=== PATIENT | female | born 1990 | race American Indian/Alaskan Native ===

== ENCOUNTER 2017-04-16 00:03 | Emergency (ER) | payer OTHER ==
[2017-04-16 00:47] VITALS: BP 113/92
[2017-04-16 02:23] LABS: Hematocrit 39.9 % (30.3-42.9); Hemoglobin 13.5 gm/dl (10.1-14.3); Mean Corpuscular HGB Conc 34 % (30-34); Mean Corpuscular Hemoglobin 29 pg (28-32); Mean Corpuscular Volume 85 fl (79-97); Platelet Count 239 K/mm3 (140-440); Red Cell Distribution Width 13.6 % (13.2-15.2)
--- NOTE | 2017-04-16 02:29 | XRay Report ---
FINAL REPORT EXAM: XR CHEST ROUTINE 2V HISTORY: Shortness of breath TECHNIQUE: PA and lateral views of the chest were submitted. FINDINGS: Heart size and mediastinum appear normal. The lungs are clear. The bones and soft tissues do not show any acute changes. IMPRESSION: No active chest disease.
[2017-04-16 02:45] LABS: Alanine Aminotransferase 8 units/L (7-56); Albumin 3.8 g/dL (3.9-5); BUN/Creatinine Ratio 22; Blood Urea Nitrogen 11 mg/dL (7-17); Calcium 9.1 mg/dL (8.4-10.2); Hemolysis Index 25
[2017-04-16 03:32] LABS: Basophils % (Manual) 0 % (0.0-1.8); Total Cells Counted 100
[2017-04-16 03:33] LABS: Platelet Estimate Consistent w Auto
== END 2017-04-16 11:45 | disposition left against medical advice (07) ==
LOC: ED 00:03
DX: R10.9 Unspecified abdominal pain (principal); R06.02 Shortness of breath; Z53.21 Procedure and treatment not carried out due to patient leaving prior to being seen by health care provider
CPT/HCPCS: 36415; 71046; 80048; 80053; 84484; 85007; 85025; 93005; 93010

== ENCOUNTER 2017-05-08 10:21 | Emergency (ER) | payer OTHER ==
[2017-05-08 10:56] VITALS: BP 115/59
--- NOTE | 2017-05-08 13:06 | Emergency Department Report ---
HPI - General Chief Complaint: Abdominal Pain Time Seen by Provider: 05/08/17 12:57 - HPI HPI: Healthy 27-year-old female presents with nasal congestion, earache and sore throat for several days. She also had a month of epigastric abdominal pain. She noted the abdominal pain after binge drinking alcohol for New Year's Roxane. Now she has intermittent epigastric pain. No pain currently. ED Past Medical Hx - Past Medical History Previous Medical History?: Yes Hx Asthma: Yes Additional medical history: SEASONAL ALLERGIES - Surgical History Past Surgical History?: Yes Additional Surgical History: rt shoulder laproscopic - Social History Smoking Status: Never Smoker Substance Use Type: Alcohol - Medications Home Medications: Home Medications Medication Instructions Recorded Confirmed Last Taken Type Amoxicillin/K Clav Tab [Augmentin 1 tab PO Q12HR #20 tab 11/04/14 Unknown Rx 875MG TAB] Fluticasone [Flonase] 2 spray NS QDAY #1 bottle 11/04/14 Unknown Rx Loratadine [Claritin] 10 mg PO DAILY #30 tablet 11/04/14 Unknown Rx predniSONE [Deltasone] 40 mg PO QDAY #10 tab 11/04/14 Unknown Rx Ibuprofen [Motrin 600 MG tab] 600 mg PO Q8H PRN #30 tablet 03/02/15 Unknown Rx Promethazine Dm [Phenergan Dm 5 ml PO Q6H PRN 7 Days 03/02/15 Unknown Rx 6.25/15 mg 5 ml] ED Review of Systems ROS: Stated complaint: CP/SOB/SORE THROAT/EAR PAIN Other details as noted in HPI Comment: All other systems reviewed and negative Constitutional: malaise. denies: fever ENT: ear pain, throat pain Respiratory: cough Cardiovascular: chest pain Physical Exam - Physical Exam Vital Signs: Vital Signs 05/08/17 10:52 Temperature 98.3 F Pulse Rate 76 Respiratory 18 Rate Blood Pressure 115/59 O2 Sat by Pulse 100 Oximetry Physical Exam: General: Well-appearing, no acute distress HEENT: Normocephalic atraumatic pupils equal round and reactive to light anicteric sclera Nose: no rhinorrhea Oropharynx: Clear mucous membranes no lesions Neck: supple, no meningismus Ears: Bilaterally normal tympanic membranes Chest: Clear to auscultation bilaterally no rales rhonchi no wheezes Cardiac: Regular rate and rhythm no murmurs no rubs no gallops Abdomen: Soft nontender nondistended positive bowel sounds no guarding Extremities: No cyanosis no clubbing no edema Neuro: Moves all extremities 4, no gross deficits Psychiatric: Alert and oriented 4 normal affect normal judgment normal insight ED Course Vital Signs 05/08/17 10:52 Temperature 98.3 F Pulse Rate 76 Respiratory 18 Rate Blood Pressure 115/59 O2 Sat by Pulse 100 Oximetry ED Medical Decision Making - EKG Data 05/08/17 13:04 EKG obtained at 1103 Rate 65 beats a minute normal sinus rhythm normal axis normal intervals no ST-T signs of ischemia - Medical Decision Making Tia has clinical diagnosis of influenza. EKG was obtained for chest pain with cough. No indication of PE. No indication of pneumonia. One month of epigastric intermittent abdominal pain differential diagnosis includes gastritis, dyspepsia, IBS, peptic ulcer disease. No evidence of peritonitis. No evidence of cholecystitis or appendicitis. Critical care attestation.: If time is entered above; I have spent that time in minutes in the direct care of this critically ill patient, excluding procedure time. ED Disposition Clinical Impression: Influenza, Abdominal pain Disposition: DC-01 TO HOME OR SELFCARE Is pt being admited?: No Does the pt Need Aspirin: No Condition: Good Instructions: Abdominal Pain (ED), Influenza (ED) Referrals: PRIMARY CARE,MD [Primary Care Provider] - as needed Forms: Work/School Release Form(ED)
== END 2017-05-08 13:12 | disposition home or self-care (01) ==
LOC: ED 10:21
DX: J11.1 Influenza due to unidentified influenza virus with other respiratory manifestations (principal); R10.9 Unspecified abdominal pain
CPT/HCPCS: 93005; 93010; 99282

== ENCOUNTER 2017-06-17 12:41 | Emergency (ER) | payer OTHER ==
[2017-06-17 13:53] VITALS: BP 138/92
[2017-06-17 14:23] LABS: Basophils % (Auto) 0.4 % (0.0-1.8); Eosinophils # (Auto) 0.1 K/mm3 (0.0-0.4); Eosinophils % (Auto) 1.1 % (0.0-4.3); Hematocrit 41.1 % (30.3-42.9); Hemoglobin 13.5 gm/dl (10.1-14.3); Lymphocytes # (Auto) 3.2 K/mm3 (1.2-5.4); Lymphocytes % (Auto) 43.1 % (13.4-35.0); Mean Corpuscular HGB Conc 33 % (30-34); Mean Corpuscular Hemoglobin 28 pg (28-32); Mean Corpuscular Volume 85 fl (79-97); Monocytes # (Auto) 0.5 K/mm3 (0.0-0.8); Monocytes % (Auto) 6.5 % (0.0-7.3); Platelet Count 256 K/mm3 (140-440); Red Blood Count 4.83 M/mm3 (3.65-5.03); Red Cell Distribution Width 14.3 % (13.2-15.2)
[2017-06-17 14:40] LABS: Alanine Aminotransferase 13 units/L (7-56); Albumin 3.9 g/dL (3.9-5); BUN/Creatinine Ratio 18; Blood Urea Nitrogen 11 mg/dL (7-17); Calcium 8.6 mg/dL (8.4-10.2); Hemolysis Index 6
[2017-06-17 16:27] LABS: Bilirubin,Urine NEG (Negative); Blood,Urine NEG (Negative); Color,Urine Yellow (Yellow); Mucus,Urine FEW /HPF; Protein,Urine <15 mg/dL mg/dL (Negative); Urobilinogen,Urine < 2.0 mg/dL (<2.0)
== END 2017-06-18 00:12 | disposition left against medical advice (07) ==
LOC: ED 12:41
DX: R10.9 Unspecified abdominal pain (principal); Z53.21 Procedure and treatment not carried out due to patient leaving prior to being seen by health care provider
CPT/HCPCS: 36415; 80053; 81001; 85025

== ENCOUNTER 2017-10-25 00:53 | Emergency (ER) | payer OTHER ==
[2017-10-25] MEDS ORDERED: NACL 0.9% 1000 ML 1,000 ML IV ONE (01:55)
[2017-10-25 02:41] LABS: Basophils # (Auto) 0.1 K/mm3 (0.0-0.1); Basophils % (Auto) 0.7 % (0.0-1.8); Eosinophils # (Auto) 0.1 K/mm3 (0.0-0.4); Eosinophils % (Auto) 0.9 % (0.0-4.3); Hemoglobin 13.3 gm/dl (10.1-14.3); Lymphocytes # (Auto) 3.3 K/mm3 (1.2-5.4); Lymphocytes % (Auto) 43.3 % (13.4-35.0); Mean Corpuscular HGB Conc 34 % (30-34); Mean Corpuscular Hemoglobin 29 pg (28-32); Mean Corpuscular Volume 86 fl (79-97); Monocytes # (Auto) 0.4 K/mm3 (0.0-0.8); Monocytes % (Auto) 5.4 % (0.0-7.3); Platelet Count 256 K/mm3 (140-440); Red Blood Count 4.53 M/mm3 (3.65-5.03); Red Cell Distribution Width 14.1 % (13.2-15.2)
[2017-10-25 02:51] LABS: Bilirubin,Urine NEG (Negative); Blood,Urine NEG (Negative); Color,Urine Yellow (Yellow); Protein,Urine <15 mg/dL mg/dL (Negative); Urobilinogen,Urine < 2.0 mg/dL (<2.0)
[2017-10-25 03:00] LABS: Alanine Aminotransferase 10 units/L (7-56); Albumin 4.1 g/dL (3.9-5); BUN/Creatinine Ratio 13; Blood Urea Nitrogen 8 mg/dL (7-17); Calcium 9.1 mg/dL (8.4-10.2); Hemolysis Index 14
[2017-10-25] MEDS ORDERED: TYLENOL PO ONE (03:08)
[2017-10-25] MEDS ORDERED: ALUM-MAG HYDROX-SIMETH 200-200-20MG/5ML PO ONE (03:08)
[2017-10-25] MEDS ORDERED: PEPCID PO ONE (03:08)
--- NOTE | 2017-10-25 03:08 | Emergency Department Report ---
ED Abdominal Pain HPI - General Chief Complaint: Abdominal Pain Stated Complaint: ABD PAIN Time Seen by Provider: 10/25/17 02:57 Source: patient, family, EMS (ems notes not available at time of chart dictation), RN notes reviewed Mode of arrival: Stretcher Limitations: No Limitations - History of Present Illness Initial Comments: This is a 27-year-old female who is unknown to this provider previously. Denies chronic medical conditions, surgical history and the abdomen. Presents to the ER with a complaint of nontraumatic bilateral lower quadrant abdominal pain, which radiates up to the epigastric region, present for approximately one day. Pain is achy, crampy, sharp, and does not have exacerbating or relieving factors. Reports prior episodes of nausea and vomiting, now resolved. Denies urinary symptoms. MD Complaint: abdominal pain -: Gradual Location: LLQ, RLQ Radiation: epigastric Quality: cramping, aching Consistency: intermittent Improves With: nothing Worsens With: nothing Associated Symptoms: nausea, vomiting. denies: diarrhea, fever, chills, constipation, dysuria, hematemesis, hematochezia, melena, hematuria, anorexia, syncope - Related Data Previous Rx's Medication Instructions Recorded Last Taken Type Amoxicillin/K Clav Tab [Augmentin 1 tab PO Q12HR #20 tab 11/04/14 Unknown Rx 875MG TAB] Fluticasone [Flonase] 2 spray NS QDAY #1 bottle 11/04/14 Unknown Rx Loratadine [Claritin] 10 mg PO DAILY #30 tablet 11/04/14 Unknown Rx predniSONE [Deltasone] 40 mg PO QDAY #10 tab 11/04/14 Unknown Rx Ibuprofen [Motrin 600 MG tab] 600 mg PO Q8H PRN #30 tablet 03/02/15 Unknown Rx Promethazine Dm [Phenergan Dm 5 ml PO Q6H PRN 7 Days 03/02/15 Unknown Rx 6.25/15 mg 5 ml] Acetaminophen [Tylenol Arthritis] 650 mg PO Q6HR PRN #30 tablet.er 10/25/17 Unknown Rx Ibuprofen [Motrin] 600 mg PO Q8H PRN #30 tablet 10/25/17 Unknown Rx Ondansetron [Zofran Odt] 4 mg PO Q8HR PRN #20 tab.rapdis 10/25/17 Unknown Rx Allergies Allergy/AdvReac Type Severity Reaction Status Date / Time No Known Allergies Allergy Verified 03/02/15 12:53 ED Review of Systems ROS: Stated complaint: ABD PAIN Other details as noted in HPI Constitutional: denies: fever Eyes: denies: eye discharge ENT: denies: epistaxis Respiratory: denies: cough Cardiovascular: denies: chest pain Gastrointestinal: abdominal pain Genitourinary: denies: dysuria Musculoskeletal: denies: back pain Skin: denies: lesions Neurological: denies: weakness Psychiatric: anxiety ED Past Medical Hx - Past Medical History Previous Medical History?: Yes Hx Asthma: Yes Additional medical history: SEASONAL ALLERGIES - Surgical History Past Surgical History?: Yes Additional Surgical History: rt shoulder laproscopic - Social History Smoking Status: Never Smoker Substance Use Type: None - Medications Home Medications: Home Medications Medication Instructions Recorded Confirmed Last Taken Type Amoxicillin/K Clav Tab [Augmentin 1 tab PO Q12HR #20 tab 11/04/14 Unknown Rx 875MG TAB] Fluticasone [Flonase] 2 spray NS QDAY #1 bottle 11/04/14 Unknown Rx Loratadine [Claritin] 10 mg PO DAILY #30 tablet 11/04/14 Unknown Rx predniSONE [Deltasone] 40 mg PO QDAY #10 tab 11/04/14 Unknown Rx Ibuprofen [Motrin 600 MG tab] 600 mg PO Q8H PRN #30 tablet 03/02/15 Unknown Rx Promethazine Dm [Phenergan Dm 5 ml PO Q6H PRN 7 Days 03/02/15 Unknown Rx 6.25/15 mg 5 ml] Acetaminophen [Tylenol Arthritis] 650 mg PO Q6HR PRN #30 tablet.er 10/25/17 Unknown Rx Ibuprofen [Motrin] 600 mg PO Q8H PRN #30 tablet 10/25/17 Unknown Rx Ondansetron [Zofran Odt] 4 mg PO Q8HR PRN #20 tab.rapdis 10/25/17 Unknown Rx ED Physical Exam - General Limitations: No Limitations General appearance: alert, in no apparent distress - Head Head exam: Present: atraumatic, normocephalic - Eye Eye exam: Present: normal appearance, EOMI. Absent: nystagmus - ENT ENT exam: Present: normal exam, normal orophraynx, mucous membranes moist - Neck Neck exam: Present: normal inspection, full ROM - Respiratory Respiratory exam: Present: normal lung sounds bilaterally. Absent: respiratory distress - Cardiovascular Cardiovascular Exam: Present: regular rate, normal rhythm, normal heart sounds. Absent: bradycardia, tachycardia, irregular rhythm, systolic murmur, diastolic murmur, rubs, gallop - GI/Abdominal GI/Abdominal exam: Present: soft, normal bowel sounds. Absent: distended, tenderness, guarding, rebound, rigid, pulsatile mass - External exam: Present: normal external exam. Absent: lesions, lacerations, ecchymosis Speculum exam: Present: normal speculum exam. Absent: cervical discharge, vaginal bleeding Bi-manual exam: Present: normal bi-manual exam, other (escorted by nurse Teagan Cui). Absent: cervical motion tendernes, adnexal tenderness, adnexal mass - Extremities Exam Extremities exam: Present: normal inspection, full ROM, normal capillary refill , other (2+ pulses noted in the bilateral upper, lower extremities. Compartments soft. No long bony tenderness. The pelvis is stable.). Absent: pedal edema, joint swelling, calf tenderness - Back Exam Back exam: Present: normal inspection, full ROM. Absent: tenderness, CVA tenderness (R), paraspinal tenderness, vertebral tenderness - Neurological Exam Neurological exam: Present: alert, oriented X3, CN II-XII intact, normal gait, other (Extraocular movements intact. Tongue midline. No facial droop. Facial sensation intact to light touch in the V1, V2, V3 distribution bilaterally. 5 and 5 strength in 4 extremities.. Sensation is intact to light touch in 4 extremities.). Absent: motor sensory deficit - Psychiatric Psychiatric exam: Present: normal affect, normal mood - Skin Skin exam: Present: warm, dry, intact, normal color. Absent: rash ED Course Vital Signs 10/25/17 10/25/17 10/25/17 01:13 03:00 03:04 Temperature 98.1 F 98.3 F Pulse Rate 71 62 58 L Respiratory 20 15 16 Rate Blood Pressure 156/97 121/84 Blood Pressure 121/84 [Left] O2 Sat by Pulse 99 100 100 Oximetry 10/25/17 04:00 Temperature Pulse Rate 59 L Respiratory 31 H Rate Blood Pressure 130/81 Blood Pressure [Left] O2 Sat by Pulse 100 Oximetry ED Medical Decision Making - Lab Data Result diagrams: 10/25/17 02:16 10/25/17 02:16 Vital Signs 10/25/17 10/25/17 10/25/17 01:13 03:00 03:04 Temperature 98.1 F 98.3 F Pulse Rate 71 62 58 L Respiratory 20 15 16 Rate Blood Pressure 156/97 121/84 Blood Pressure 121/84 [Left] O2 Sat by Pulse 99 100 100 Oximetry 10/25/17 04:00 Temperature Pulse Rate 59 L Respiratory 31 H Rate Blood Pressure 130/81 Blood Pressure [Left] O2 Sat by Pulse 100 Oximetry Lab Results 10/25/17 10/25/17 10/25/17 Range/Units 02:16 02:16 02:20 WBC 7.6 (4.5-11.0) K/mm3 RBC 4.53 (3.65-5.03) M/mm3 Hgb 13.3 (10.1-14.3) gm/dl Hct 39.0 (30.3-42.9) % MCV 86 (79-97) fl MCH 29 (28-32) pg MCHC 34 (30-34) % RDW 14.1 (13.2-15.2) % Plt Count 256 (140-440) K/mm3 Lymph % (Auto) 43.3 H (13.4-35.0) % [place] % (Auto) 5.4 (0.0-7.3) % Eos % (Auto) 0.9 (0.0-4.3) % Baso % (Auto) 0.7 (0.0-1.8) % Lymph # 3.3 (1.2-5.4) K/mm3 [place] # 0.4 (0.0-0.8) K/mm3 Eos # 0.1 (0.0-0.4) K/mm3 Baso # 0.1 (0.0-0.1) K/mm3 Seg Neutrophils % 49.7 (40.0-70.0) % Seg Neutrophils # 3.8 (1.8-7.7) K/mm3 Sodium 139 (137-145) mmol/L Potassium 4.6 (3.6-5.0) mmol/L Chloride 102.2 (98-107) mmol/L Carbon Dioxide 28 (22-30) mmol/L Anion Gap 13 mmol/L BUN 8 (7-17) mg/dL Creatinine 0.6 L (0.7-1.2) mg/dL Estimated GFR > 60 ml/min BUN/Creatinine Ratio 13 % Glucose 92 (65-100) mg/dL Calcium 9.1 (8.4-10.2) mg/dL Total Bilirubin 0.20 (0.1-1.2) mg/dL AST 17 (5-40) units/L ALT 10 (7-56) units/L Alkaline Phosphatase 74 (35-129) units/L Total Protein 6.8 (6.3-8.2) g/dL Albumin 4.1 (3.9-5) g/dL Albumin/Globulin Ratio 1.5 % Urine Color Yellow (Yellow) Urine Turbidity Clear (Clear) Urine pH 6.0 (5.0-7.0) Ur Specific [place] 1.018 (1.003-1.030) Urine Protein <15 mg/dl (Negative) mg/dL Urine Glucose (UA) Neg (Negative) mg/dL Urine Ketones Neg (Negative) mg/dL Urine Blood Neg (Negative) Urine Nitrite Neg (Negative) Urine Bilirubin Neg (Negative) Urine Urobilinogen < 2.0 (<2.0) mg/dL Ur Leukocyte Esterase Tr (Negative) Urine WBC (Auto) 2.0 (0.0-6.0) /HPF Urine RBC (Auto) 2.0 (0.0-6.0) /HPF U Epithel Cells (Auto) 3.0 (0-13.0) /HPF Urine HCG, Qual (Negative) 10/25/17 Range/Units 02:20 WBC (4.5-11.0) K/mm3 RBC (3.65-5.03) M/mm3 Hgb (10.1-14.3) gm/dl Hct (30.3-42.9) % MCV (79-97) fl MCH (28-32) pg MCHC (30-34) % RDW (13.2-15.2) % Plt Count (140-440) K/mm3 Lymph % (Auto) (13.4-35.0) % [place] % (Auto) (0.0-7.3) % Eos % (Auto) (0.0-4.3) % Baso % (Auto) (0.0-1.8) % Lymph # (1.2-5.4) K/mm3 [place] # (0.0-0.8) K/mm3 Eos # (0.0-0.4) K/mm3 Baso # (0.0-0.1) K/mm3 Seg Neutrophils % (40.0-70.0) % Seg Neutrophils # (1.8-7.7) K/mm3 Sodium (137-145) mmol/L Potassium (3.6-5.0) mmol/L Chloride (98-107) mmol/L Carbon Dioxide (22-30) mmol/L Anion Gap mmol/L BUN (7-17) mg/dL Creatinine (0.7-1.2) mg/dL Estimated GFR ml/min BUN/Creatinine Ratio % Glucose (65-100) mg/dL Calcium (8.4-10.2) mg/dL Total Bilirubin (0.1-1.2) mg/dL AST (5-40) units/L ALT (7-56) units/L Alkaline Phosphatase (35-129) units/L Total Protein (6.3-8.2) g/dL Albumin (3.9-5) g/dL Albumin/Globulin Ratio % Urine Color (Yellow) Urine Turbidity (Clear) Urine pH (5.0-7.0) Ur Specific [place] (1.003-1.030) Urine Protein (Negative) mg/dL Urine Glucose (UA) (Negative) mg/dL Urine Ketones (Negative) mg/dL Urine Blood (Negative) Urine Nitrite (Negative) Urine Bilirubin (Negative) Urine Urobilinogen (<2.0) mg/dL Ur Leukocyte Esterase (Negative) Urine WBC (Auto) (0.0-6.0) /HPF Urine RBC (Auto) (0.0-6.0) /HPF U Epithel Cells (Auto) (0-13.0) /HPF Urine HCG, Qual Negative (Negative) - Radiology Data Radiology results: report reviewed, image reviewed CT scan of the abdomen and pelvis is negative for Inflammatory disease or pathology. The appendix is within normal limits. - Medical Decision Making Differential diagnosis, including with not limited to, constipation, pelvic inflammatory disease, appendicitis, Assessment and plan: 27-year-old female with lower abdominal pain. The patient is afebrile with reassuring vital signs and she is nontender. She had no cervical motion tenderness or adnexal tenderness. Therefore think ovarian cyst , ovarian torsion is very unlikely. Laboratory studies were unremarkable, her symptoms were treated supportively and symptomatically, and she reported that she felt much improved. Gynecologic exam is benign, although a wet prep demonstrated trichomoniasis. She will therefore be treated empirically with metronidazole, ceftriaxone, azithromycin. She is currently speaking on the cell phone and indicates that she feels improved to go home. Critical care attestation.: If time is entered above; I have spent that time in minutes in the direct care of this critically ill patient, excluding procedure time. ED Disposition Clinical Impression: Abdominal pain Disposition: DC-01 TO HOME OR SELFCARE Is pt being admited?: No Does the pt Need Aspirin: No Condition: Stable Instructions: Trichomoniasis (ED), Pelvic Inflammatory Disease (ED) Additional Instructions: As we discussed, your laboratory studies appeared to be within normal limits. Wet prep demonstrated the presence of trichomoniasis, typically considered a sexually transmitted disease Did not consume alcohol for the next 5 days. Given all this, you'll be treated empirically for disease called pelvic inflammatory disease. We typically treat young females with unexplained lower abdominal pain to protect your ability to have children safely in the future. Cultures were sent today, and results will be available next 3-5 days. Please have your primary care doctor call the medical records department to obtain your culture results. Take the antibiotic therapy as directed. Take the nausea medication and pain medication as directed. I recommend outpatient testing for sexually transmitted diseases, including hepatitis, syphilis and HIV. I also recommend that you abstain from sexual activity until you have completed her antibiotic therapy, a physician states that it is safe for you to resume sexual activity, and any partners that you have been sexually active with have been tested/treated/evaluated for sexual transmitted diseases. Please follow-up with physician within 3-5 days. I recommend that you return to the ER right away with worsening pain, migration of pain, intractable nausea/vomiting, inability tolerate liquid feeds. Referrals: PRIMARY CAREMD [Primary Care Provider] - 3-5 Days [facility] [Provider Group] - 3-5 Days [facility] [employer] [facility] [Provider Group] - 3-5 Days [facility] [Provider Group] - 3-5 Days
[2017-10-25 03:17] LABS: HCG Qualitative,Urine Negative (Negative)
[2017-10-25] MEDS ORDERED: TORADOL IV ONE (03:51)
[2017-10-25 04:39] VITALS: BP 130/81
--- NOTE | 2017-10-25 05:11 | Cat Scan Report ---
FINAL REPORT PROCEDURE: CT ABDOMEN PELVIS W CON TECHNIQUE: Computerized axial tomography of the abdomen and pelvis was performed after the IV injection of iodinated nonionic contrast. HISTORY: abd pain COMPARISON: No prior studies are available for comparison. FINDINGS: Visualized lower thorax: No significant abnormality. Liver: Normal size and attenuation. Spleen: Normal size and attenuation. Gallbladder and biliary system: Normal. Pancreas: Normal. Adrenals: Normal. Kidneys: Normal. GI tract: There is no bowel obstruction, colitis or enteritis. The appendix is normal.. Lymph nodes and mesentery: There are borderline prominent mesenteric lymph nodes which are nonspecific.. Vasculature: Normal. Bladder: Normal. Reproductive organs: Uterus and ovaries are unremarkable.. Peritoneum: There is no ascites, free air, abscess or mass. Musculoskeletal structures: No significant abnormality. Other: None. IMPRESSION: Normal examination of the abdomen and pelvis
[2017-10-25] MEDS ORDERED: ZITHROMAX PO ONE (05:24)
[2017-10-25] MEDS ORDERED: FLAGYL PO ONE (05:24)
[2017-10-25] MEDS ORDERED: ROCEPHIN 250 MG in NACL 0.9% 50 ML IV ONE (06:00)
== END 2017-10-25 07:16 | disposition home or self-care (01) ==
LOC: ED 00:53
DX: R10.31 Right lower quadrant pain (principal); R10.32 Left lower quadrant pain; R10.13 Epigastric pain; R11.2 Nausea with vomiting, unspecified; J45.909 Unspecified asthma, uncomplicated
CPT/HCPCS: 36415; 74177; 80053; 81001; 81025; 85025; 87210; 87591; 93005; 93010; 96365; 96375; 99285; J0696; J1885; Q9967

== ENCOUNTER 2018-10-10 09:35 | Emergency (ER) | payer OTHER ==
[2018-10-10 09:48] VITALS: BP 144/89
--- NOTE | 2018-10-10 11:17 | Emergency Department Report ---
- General Chief complaint: Animal Bite Stated complaint: STUNG BY WASP Time Seen by Provider: 10/10/18 10:43 Source: patient Mode of arrival: Ambulatory Limitations: No Limitations - History of Present Illness Initial comments: Cheryl is a 28 yo female with hx of asthma who presents with right anterior thigh pain and redness after wasp sting. Has redness and irritation. MD complaint: rash -: days(s) (2) Location: RLE Severity: mild Consistency: constant Improves with: none Worsens with: none - Related Data Previous Rx's Medication Instructions Recorded Last Taken Type Amoxicillin/K Clav Tab [Augmentin 1 tab PO Q12HR #20 tab 11/04/14 Unknown Rx 875MG TAB] Fluticasone [Flonase] 2 spray NS QDAY #1 bottle 11/04/14 Unknown Rx Loratadine [Claritin] 10 mg PO DAILY #30 tablet 11/04/14 Unknown Rx predniSONE [Deltasone] 40 mg PO QDAY #10 tab 11/04/14 Unknown Rx Ibuprofen [Motrin 600 MG tab] 600 mg PO Q8H PRN #30 tablet 03/02/15 Unknown Rx Promethazine Dm (Nf) [Phenergan Dm 5 ml PO Q6H PRN 7 Days 03/02/15 Unknown Rx 6.25/15 mg 5 ml] Acetaminophen [Tylenol Arthritis] 650 mg PO Q6HR PRN #30 tablet.er 10/25/17 Unknown Rx Ibuprofen [Motrin] 600 mg PO Q8H PRN #30 tablet 10/25/17 Unknown Rx Ondansetron [Zofran Odt] 4 mg PO Q8HR PRN #20 tab.rapdis 10/25/17 Unknown Rx Amoxicillin/Potassium Clav 1 each PO BID #10 tablet 07/19/18 Unknown Rx [Augmentin 875-125 Tablet] Benzonatate [Tessalon Perles] 100 mg PO Q8HR PRN #30 capsule 07/19/18 Unknown Rx Fluticasone [Flonase] 2 spray NS QDAY #1 bottle 07/19/18 Unknown Rx methylPREDNISolone [Medrol] 4 mg PO DAILY #1 tab.ds.pk 07/19/18 Unknown Rx Sulfamethoxazole/Trimethoprim 1 each PO BID 7 Days #14 tablet 10/10/18 Unknown Rx [Bactrim DS TAB] Allergies Allergy/AdvReac Type Severity Reaction Status Date / Time No Known Allergies Allergy Verified 10/10/18 09:37 Abscess Boil HPI - HPI Chief Complaint: Animal Bite Stated Complaint: STUNG BY WASP Time Seen by Provider: 10/10/18 10:43 Home Medications: Previous Rx's Medication Instructions Recorded Last Taken Type Amoxicillin/K Clav Tab [Augmentin 1 tab PO Q12HR #20 tab 11/04/14 Unknown Rx 875MG TAB] Fluticasone [Flonase] 2 spray NS QDAY #1 bottle 11/04/14 Unknown Rx Loratadine [Claritin] 10 mg PO DAILY #30 tablet 11/04/14 Unknown Rx predniSONE [Deltasone] 40 mg PO QDAY #10 tab 11/04/14 Unknown Rx Ibuprofen [Motrin 600 MG tab] 600 mg PO Q8H PRN #30 tablet 03/02/15 Unknown Rx Promethazine Dm (Nf) [Phenergan Dm 5 ml PO Q6H PRN 7 Days 03/02/15 Unknown Rx 6.25/15 mg 5 ml] Acetaminophen [Tylenol Arthritis] 650 mg PO Q6HR PRN #30 tablet.er 10/25/17 Unknown Rx Ibuprofen [Motrin] 600 mg PO Q8H PRN #30 tablet 10/25/17 Unknown Rx Ondansetron [Zofran Odt] 4 mg PO Q8HR PRN #20 tab.rapdis 10/25/17 Unknown Rx Amoxicillin/Potassium Clav 1 each PO BID #10 tablet 07/19/18 Unknown Rx [Augmentin 875-125 Tablet] Benzonatate [Tessalon Perles] 100 mg PO Q8HR PRN #30 capsule 07/19/18 Unknown Rx Fluticasone [Flonase] 2 spray NS QDAY #1 bottle 07/19/18 Unknown Rx methylPREDNISolone [Medrol] 4 mg PO DAILY #1 tab.ds.pk 07/19/18 Unknown Rx Sulfamethoxazole/Trimethoprim 1 each PO BID 7 Days #14 tablet 10/10/18 Unknown Rx [Bactrim DS TAB] Allergies/Adverse Reactions: Allergies Allergy/AdvReac Type Severity Reaction Status Date / Time No Known Allergies Allergy Verified 10/10/18 09:37 ED Review of Systems ROS: Stated complaint: STUNG BY WASP Other details as noted in HPI Constitutional: denies: fever, malaise Skin: rash, lesions ED Past Medical Hx - Past Medical History Previous Medical History?: Yes Hx Asthma: Yes Additional medical history: SEASONAL ALLERGIES - Surgical History Additional Surgical History: rt shoulder laproscopic - Social History Smoking Status: Never Smoker Substance Use Type: Alcohol - Medications Home Medications: Home Medications Medication Instructions Recorded Confirmed Last Taken Type Amoxicillin/K Clav Tab [Augmentin 1 tab PO Q12HR #20 tab 11/04/14 Unknown Rx 875MG TAB] Fluticasone [Flonase] 2 spray NS QDAY #1 bottle 11/04/14 Unknown Rx Loratadine [Claritin] 10 mg PO DAILY #30 tablet 11/04/14 Unknown Rx predniSONE [Deltasone] 40 mg PO QDAY #10 tab 11/04/14 Unknown Rx Ibuprofen [Motrin 600 MG tab] 600 mg PO Q8H PRN #30 tablet 03/02/15 Unknown Rx Promethazine Dm (Nf) [Phenergan Dm 5 ml PO Q6H PRN 7 Days 03/02/15 Unknown Rx 6.25/15 mg 5 ml] Acetaminophen [Tylenol Arthritis] 650 mg PO Q6HR PRN #30 tablet.er 10/25/17 Unknown Rx Ibuprofen [Motrin] 600 mg PO Q8H PRN #30 tablet 10/25/17 Unknown Rx Ondansetron [Zofran Odt] 4 mg PO Q8HR PRN #20 tab.rapdis 10/25/17 Unknown Rx Amoxicillin/Potassium Clav 1 each PO BID #10 tablet 07/19/18 Unknown Rx [Augmentin 875-125 Tablet] Benzonatate [Tessalon Perles] 100 mg PO Q8HR PRN #30 capsule 07/19/18 Unknown Rx Fluticasone [Flonase] 2 spray NS QDAY #1 bottle 07/19/18 Unknown Rx methylPREDNISolone [Medrol] 4 mg PO DAILY #1 tab.ds.pk 07/19/18 Unknown Rx Sulfamethoxazole/Trimethoprim 1 each PO BID 7 Days #14 tablet 10/10/18 Unknown Rx [Bactrim DS TAB] ED Physical Exam - General Limitations: No Limitations General appearance: alert, in no apparent distress - Neurological Exam Neurological exam: Present: alert, oriented X3 - Psychiatric Psychiatric exam: Present: normal affect, normal mood - Skin Skin exam: Present: rash (3 cm x 4 cm redness mild edema right anterior) ED Course Vital Signs 10/10/18 09:46 Temperature 98.3 F Pulse Rate 110 H Respiratory 18 Rate Blood Pressure 144/89 O2 Sat by Pulse 99 Oximetry ED Medical Decision Making - Medical Decision Making Tia conti infected insect sting/bite. No stinger present. Rx: bactrim Critical care attestation.: If time is entered above; I have spent that time in minutes in the direct care of this critically ill patient, excluding procedure time. ED Disposition Clinical Impression: Infected insect bite, Cellulitis of right thigh Disposition: DC-01 TO HOME OR SELFCARE Is pt being admited?: No Does the pt Need Aspirin: No Condition: Stable Instructions: Insect Bite or Sting (ED) Prescriptions: Sulfamethoxazole/Trimethoprim [Bactrim DS TAB] 1 each PO BID 7 Days #14 tablet Referrals: GITA CHILDRESS MD [Primary Care Provider] - 3-5 Days Forms: Work/School Release Form(ED)
== END 2018-10-10 12:07 | disposition home or self-care (01) ==
LOC: ED 09:35
DX: L03.115 Cellulitis of right lower limb (principal); J45.909 Unspecified asthma, uncomplicated
CPT/HCPCS: 99282

== ENCOUNTER 2018-11-18 00:36 | Emergency (ER) | payer SELFPAY ==
--- NOTE | 2018-11-18 01:41 | XRay Report ---
LEFT HAND 2 VIEWS INDICATION / CLINICAL INFORMATION: 3 cm laceration to left thumb 30 minutes ago. Cut on glass bottle. COMPARISON: None available. FINDINGS: BONES / JOINT(S): There is no evidence of fracture or subluxation. No significant arthritis. SOFT TISSUES: A bandage overlies the thumb. There is no evidence of a radiopaque foreign body.. ADDITIONAL FINDINGS: None. IMPRESSION: No evidence of fracture or foreign body. Signer Name: Joseph Ayala MD Signed: 11/18/2018 1:37 AM Workstation Name: [id number]
[2018-11-18] MEDS ORDERED: XYLOCAINE 2% INFILTRATI ONE ×2 (04:24→04:25)
[2018-11-18] MEDS ORDERED: BOOSTRIX IM ONE (05:20)
[2018-11-18] MEDS ORDERED: NORCO 5/325 PO ONE (05:20)
--- NOTE | 2018-11-18 05:22 | Emergency Department Report ---
- General Chief Complaint: Wound/Laceration Stated Complaint: LACERATION ON LEFT THUMB Time Seen by Provider: 11/18/18 04:25 Source: patient Mode of arrival: Ambulatory Limitations: No Limitations - History of Present Illness Initial Comments: pt is a 28 y/o aaf who presents for left thumb laceration , versus wine bottle , all bleeding was controlled by self applied direct pressure, rom remains intact there is no muscle tendon or nerver damage, last tetanus 2011, Onset/Timin -: days(s) Extremity Location: Left: Hand (left thumb laceration ) Place: home Patient Tetanus UTD: Yes (2011) Context: accidental Associated Symptoms: pain - Related Data Previous Rx's Medication Instructions Recorded Last Taken Type Amoxicillin/K Clav Tab [Augmentin 1 tab PO Q12HR #20 tab 11/04/14 Unknown Rx 875MG TAB] Fluticasone [Flonase] 2 spray NS QDAY #1 bottle 11/04/14 Unknown Rx Loratadine [Claritin] 10 mg PO DAILY #30 tablet 11/04/14 Unknown Rx predniSONE [Deltasone] 40 mg PO QDAY #10 tab 11/04/14 Unknown Rx Ibuprofen [Motrin 600 MG tab] 600 mg PO Q8H PRN #30 tablet 03/02/15 Unknown Rx Promethazine Dm (Nf) [Phenergan Dm 5 ml PO Q6H PRN 7 Days 03/02/15 Unknown Rx 6.25/15 mg 5 ml] Acetaminophen [Tylenol Arthritis] 650 mg PO Q6HR PRN #30 tablet.er 10/25/17 Unknown Rx Ibuprofen [Motrin] 600 mg PO Q8H PRN #30 tablet 10/25/17 Unknown Rx Ondansetron [Zofran Odt] 4 mg PO Q8HR PRN #20 tab.rapdis 10/25/17 Unknown Rx Amoxicillin/Potassium Clav 1 each PO BID #10 tablet 07/19/18 Unknown Rx [Augmentin 875-125 Tablet] Benzonatate [Tessalon Perles] 100 mg PO Q8HR PRN #30 capsule 07/19/18 Unknown Rx Fluticasone [Flonase] 2 spray NS QDAY #1 bottle 07/19/18 Unknown Rx methylPREDNISolone [Medrol] 4 mg PO DAILY #1 tab.ds.pk 07/19/18 Unknown Rx Sulfamethoxazole/Trimethoprim 1 each PO BID 7 Days #14 tablet 10/10/18 Unknown Rx [Bactrim DS TAB] cephALEXin [Keflex] 500 mg PO Q8HR 10 Days #30 cap 11/18/18 Unknown Rx traMADol [Ultram] 50 mg PO Q6HR PRN #12 tablet 11/18/18 Unknown Rx Allergies Allergy/AdvReac Type Severity Reaction Status Date / Time No Known Allergies Allergy Verified 10/10/18 09:37 ED Review of Systems ROS: Stated complaint: LACERATION ON LEFT THUMB Other details as noted in HPI Constitutional: denies: chills, fever Eyes: denies: eye pain, eye discharge, vision change ENT: denies: ear pain, throat pain Respiratory: denies: cough, shortness of breath, wheezing Cardiovascular: denies: chest pain, palpitations Endocrine: no symptoms reported Gastrointestinal: as per HPI, nausea Genitourinary: denies: urgency, dysuria, discharge Musculoskeletal: denies: back pain, joint swelling, arthralgia Skin: other (left thumb laceration). denies: rash, lesions Neurological: denies: headache, weakness, paresthesias Psychiatric: denies: anxiety, depression Hematological/Lymphatic: denies: easy bleeding, easy bruising ED Past Medical Hx - Past Medical History Hx Asthma: Yes Additional medical history: SEASONAL ALLERGIES - Surgical History Additional Surgical History: rt shoulder laproscopic - Social History Smoking Status: Never Smoker - Medications Home Medications: Home Medications Medication Instructions Recorded Confirmed Last Taken Type Amoxicillin/K Clav Tab [Augmentin 1 tab PO Q12HR #20 tab 11/04/14 Unknown Rx 875MG TAB] Fluticasone [Flonase] 2 spray NS QDAY #1 bottle 11/04/14 Unknown Rx Loratadine [Claritin] 10 mg PO DAILY #30 tablet 11/04/14 Unknown Rx predniSONE [Deltasone] 40 mg PO QDAY #10 tab 11/04/14 Unknown Rx Ibuprofen [Motrin 600 MG tab] 600 mg PO Q8H PRN #30 tablet 03/02/15 Unknown Rx Promethazine Dm (Nf) [Phenergan Dm 5 ml PO Q6H PRN 7 Days 03/02/15 Unknown Rx 6.25/15 mg 5 ml] Acetaminophen [Tylenol Arthritis] 650 mg PO Q6HR PRN #30 tablet.er 10/25/17 Unknown Rx Ibuprofen [Motrin] 600 mg PO Q8H PRN #30 tablet 10/25/17 Unknown Rx Ondansetron [Zofran Odt] 4 mg PO Q8HR PRN #20 tab.rapdis 10/25/17 Unknown Rx Amoxicillin/Potassium Clav 1 each PO BID #10 tablet 07/19/18 Unknown Rx [Augmentin 875-125 Tablet] Benzonatate [Tessalon Perles] 100 mg PO Q8HR PRN #30 capsule 07/19/18 Unknown Rx Fluticasone [Flonase] 2 spray NS QDAY #1 bottle 07/19/18 Unknown Rx methylPREDNISolone [Medrol] 4 mg PO DAILY #1 tab.ds.pk 07/19/18 Unknown Rx Sulfamethoxazole/Trimethoprim 1 each PO BID 7 Days #14 tablet 10/10/18 Unknown Rx [Bactrim DS TAB] cephALEXin [Keflex] 500 mg PO Q8HR 10 Days #30 cap 11/18/18 Unknown Rx traMADol [Ultram] 50 mg PO Q6HR PRN #12 tablet 11/18/18 Unknown Rx ED Physical Exam - General Limitations: No Limitations General appearance: alert, in no apparent distress - Head Head exam: Present: atraumatic, normocephalic - Eye Eye exam: Present: normal appearance, PERRL, EOMI Pupils: Present: normal accommodation - ENT ENT exam: Present: mucous membranes moist - Neck Neck exam: Present: normal inspection, full ROM. Absent: tenderness, lymphadenopathy - Respiratory Respiratory exam: Present: normal lung sounds bilaterally. Absent: respiratory distress, wheezes, stridor - Cardiovascular Cardiovascular Exam: Present: regular rate, normal rhythm, normal heart sounds. Absent: systolic murmur, diastolic murmur, rubs, gallop - GI/Abdominal GI/Abdominal exam: Present: soft, normal bowel sounds. Absent: bruit, hernia - Rectal Rectal exam: Present: deferred - Extremities Exam Extremities exam: Present: normal inspection, full ROM, tenderness (left thumb laceration), normal capillary refill. Absent: joint swelling - Expanded Upper Extremity Exam Left Hand Wrist exam: Present: full ROM, tenderness, laceration (left thumb at distal joint no nerve tendon or muscle damage ). Absent: swelling, abrasion, ecchymosis, deformity, crepidus, erythema, amputation, nail avulsion, subungual hematoma Neuro motor exam: Present: wrist extension intact, thumb opposition intact, thumb IP flexion intact, thumb adduction intact, fingers 2-5 abduction intact Neurosensory exam: Present: 2-point discrimination, radial nerve intact, ulnar nerve intact, median nerve intact Vascular: Present: normal capillary refill, radial pulse, ulnar pulse. Absent: pulse deficit radial art, pulse deficit ulnar art, pulse deficit brachial art - Back Exam Back exam: Present: normal inspection, full ROM. Absent: tenderness, rash noted - Neurological Exam Neurological exam: Present: alert, oriented X3, CN II-XII intact, normal gait, reflexes normal. Absent: motor sensory deficit - Psychiatric Psychiatric exam: Present: normal affect, normal mood - Skin Skin exam: Present: warm, dry, intact, normal color. Absent: rash - Laceration /Wound Repair Left Distal Volar Finger Wound Location: upper extremity (left thumb laceration ) Wound Length (cm): 1 Wound's Depth, Shape: superficial Wound Explored: clean Irrigated w/ Saline (ccs): 20 Betadine Prep?: Yes Anesthesia: 1% Lidocaine Volume Anesthetic (ccs): 1 (digital block ) Wound Debrided: moderate Wound Repaired With: sutures Suture Size/Type: 4:0, proline Number of Sutures: 7 Layer Closure?: No Progress: Left thumb laceration volar side 1 cm wound irrigated with Betadine solution anesthesia with 1% lidocaine via digital nerve block and irrigated with 20 mL sterile saline and probed no foreign bodies CMS intact range of motion intact there is no tendon muscle or nerve damage wound closed with 3. 0 Prolene 7 sutures edges well approximated bleeding is controlled sterile dressing is applied range of motion remains intact distal pulses intact [employer]ACH less than 3 seconds sterile dressing is applied patient given wound care instructions verbalized understanding of same pt tolerated procedure with minimal distress. ED Medical Decision Making - Radiology Data Radiology results: report reviewed, image reviewed Ordering Physician: MAYRA EVANS MD Date of Service: 11/18/18 Procedure(s): XR hand 2V LT Accession Number(s): [id number] cc: ED MD CRISTINA Fluoro Time In Minutes: LEFT HAND 2 VIEWS INDICATION / CLINICAL INFORMATION: 3 cm laceration to left thumb 30 minutes ago. Cut on glass bottle. COMPARISON: None available. FINDINGS: BONES / JOINT(S): There is no evidence of fracture or subluxation. No significant arthritis. SOFT TISSUES: A bandage overlies the thumb. There is no evidence of a radiopaque foreign body.. ADDITIONAL FINDINGS: None. IMPRESSION: No evidence of fracture or foreign body. Signer Name: Joseph Ayala MD Signed: 11/18/2018 1:37 AM Workstation Name: [id number] Transcribed By: RT Dictated By: Joseph Ayala MD Electronically Authenticated By: Joseph Ayala MD Signed Date/Time: 11/18/18136 DD/ 4 TD/TT: - Medical Decision Making laceration repaired see procedure note rom intact pt given wound care instructions verbalized agreement and understanding of same, pt will will follow up with pcp in 2 days for wound check and 7-10 days suture removal. pt dc'd to home with rx for ceflex, ultram, Critical care attestation.: If time is entered above; I have spent that time in minutes in the direct care of this critically ill patient, excluding procedure time. ED Disposition Clinical Impression: Laceration of thumb Qualifiers: Encounter type: initial encounter Damage to nail status: without damage Foreign body presence: without foreign body Laterality: left Qualified Code(s): S61.012A - Laceration without foreign body of left thumb without damage to nail, initial encounter Disposition: DC-01 TO HOME OR SELFCARE Is pt being admited?: No Does the pt Need Aspirin: No Condition: Stable Instructions: Laceration (ED), Suture Care (ED) Prescriptions: cephALEXin [Keflex] 500 mg PO Q8HR 10 Days #30 cap traMADol [Ultram] 50 mg PO Q6HR PRN #12 tablet PRN Reason: Pain Referrals: [facility] MD HOWARD [Primary Care Provider] - 3-5 Days Forms: Work/School Release Form(ED) Time of Disposition: 05:25
[2018-11-18 05:40] VITALS: BP 120/77
== END 2018-11-18 05:45 | disposition home or self-care (01) ==
LOC: ED 00:36
DX: S61.012A Laceration without foreign body of left thumb without damage to nail, initial encounter (principal); J45.909 Unspecified asthma, uncomplicated; Z79.899 Other long term (current) drug therapy; X58.XXXA Exposure to other specified factors, initial encounter; Y93.89 Activity, other specified; Y92.89 Other specified places as the place of occurrence of the external cause; Y99.8 Other external cause status
CPT/HCPCS: 90471; 90715